=== PATIENT | male | born 1990 | race Caucasian/White ===

== ENCOUNTER 2021-01-04 16:01 | Emergency (ER) | payer SELFPAY ==
--- NOTE | ~2021-01-04 | XR_ITS ---
EXAMINATION: XR finger 2nd LT min 2V DATE: 01/04/2021 16:30 INDICATION: Pain at the left second digit TECHNIQUE: Dorsal palmar, lateral and 2 oblique views of the left second digit were obtained COMPARISON: None FINDINGS: Alignment is normal. No fracture. Joint spaces are normal. No cortical erosions or periosteal reactio n. Diffuse soft tissue swelling about the left second digit with more prominent focal swelling at the dorsal aspect of the proximal interphalangeal joint. No radiopaque foreign bodies. IMPRESSION: 1. No osseous abnormality. Reviewed, dictated and finalized at location A. IMPRESSION: 1. No osseous abnormality.
[2021-01-04 16:18] VITALS: BP 124/92; PULSE 116; RESP 18; TEMP 36.8; O2SAT 97
--- NOTE | 2021-01-04 16:48 | PC.NURSE ---
Pt noted to have superficial abrasions noted to right hand, cleansed with wound cleanser and water.
--- NOTE | 2021-01-04 16:53 | ED.UPPEXIN ---
HPI - Extremity Injury (Upper) General Chief Complaint: Extremity Injury, Upper Stated Complaint: left index finger injury Source: patient Mode of arrival: ambulatory History of Present Illness HPI narrative: patient has been preparing drywall and injured his left index finger it got smashed by a door causing pain with no deformity has no numbness or tingling has good range of motion. complaint: injury to: left Onset (ago): hour(s) Other Extremity Injury: Left: fingers ( index finger injury) Related Data Home Medications Medication Instructions Recorded Confirmed No Home Medications 01/04/21 01/04/21 Allergies Allergy/AdvReac Type Severity Reaction Status Date / Time No Known Allergies Allergy Verified 01/04/21 16:15 Review of Systems Review of Systems: All systems reviewed & are unremarkable except as noted in HPI and below PMFSH Past Medical History Medical History Patient denies medical problems Exam Const: General: no acute distress Orientation/consciousness: patient oriented x3 HENMT: Head: normal to inspection Eyes: Conjunctivae: conjunctivae normal Pupils: Equal, round and reactive pupils present Neck: Neck: normal visual inspection, no lymphadenopathy and no meningeal signs Chest: Chest palpation & inspection: normal inspection of the chest Resp: Effort & Inspection: normal respiratory effort Auscultation: clear to auscultation bilaterally Cardio: Rate: regular rate Rhythm: regular rhythm Back/Spine/Pelvis: Back: no CVA tenderness Skin: General skin exam: normal color Rashes: no rashes Neuro: General: patient oriented x3 and moves all extremities Extrem: Other: has a tender distal left index finger with no deformity Psych: Mental Status: mental status grossly normal Affect: normal affect Course Course Emergency Course: x-rays reviewed with patient with no acute fractures. Vital Signs Vital signs: Vital Signs Temperature 36.8 C 01/04/21 16:18 Pulse Rate 116 H 01/04/21 16:18 Respiratory Rate 18 01/04/21 16:18 Blood Pressure 124/92 H 01/04/21 16:18 Pulse Oximetry 97 01/04/21 16:18 Temperature 36.8 C 01/04/21 16:18 Pulse Rate 116 H 01/04/21 16:18 Respiratory Rate 18 01/04/21 16:18 Blood Pressure 124/92 H 01/04/21 16:18 Pulse Oximetry 97 01/04/21 16:18 Critical Care Time Critical Care Time Critical Care Time: No Discharge Plan Discharge Clinical Impression: Finger sprain Qualifiers: Encounter type: initial encounter Finger: index finger Sprain of finger site: interphalangeal joint Laterality: left Qualified Code(s): S63.631A - Sprain of interphalangeal joint of left index finger, initial encounter Patient Disposition: Home, Self-Care Condition: Stable Instructions: Antibiotic Form, Finger Sprain (ED) Additional Instructions: advised to take Tylenol or Motrin as needed. Prescriptions: No Action No Home Medications RF: 0 Follow-up/Referrals: UNKNOWN,DOCTOR [Primary Care Provider] - Time of Disposition: 16:56
== END 2021-01-04 17:01 | disposition home or self-care (01) ==
PROVIDERS: Emergency Provider Emergency Medicine
DX: S63.631A Sprain of interphalangeal joint of left index finger, initial encounter (principal); W22.8XXA Striking against or struck by other objects, initial encounter
CPT/HCPCS: 73140; 99282; 99283